=== PATIENT | male | born 1990 | race Caucasian/White ===

== ENCOUNTER 2020-04-01 08:00 | Emergency (ER) | payer OTHER, SELFPAY ==
[2020-04-01 08:09] VITALS: BP 142/76; PULSE 85; RESP 20; TEMP 37.3; O2SAT 100
--- NOTE | 2020-04-01 08:20 | ED.SKABFB ---
HPI - Skin/Abscess/Foreign Bdy General Chief complaint: Skin/Abscess/Foreign Body Stated complaint: bite on left forearm Time Seen by Provider: 04/01/20 08:16 Source: patient and RN notes reviewed Mode of arrival: ambulatory Limitations: no limitations History of Present Illness HPI narrative: Patient presents today complaining of an insect bite to his left forearm. Bite was sustained 2 days ago. Redness has spread since onset of symptoms. Patient is unsure what bit him. He does report some itching, but denies pain. He has been using oral Benadryl and topical Benadryl without much relief. No recent antibiotic use. MD complaint: insect bite/sting Related Data Allergies Allergy/AdvReac Type Severity Reaction Status Date / Time No Known Allergies Allergy Unverified 04/01/20 08:12 Review of Systems Review of Systems: Narrative: CONSTITUTIONAL: Denies body aches, fever, chills, or sweats. EYES: Denies visual changes, redness, or discharge. ENT: Denies rhinorrhea, congestion, sore throat, or otalgia. CARDIOVASCULAR: Denies chest pain, palpitations, or edema. RESPIRATORY: Denies cough or dyspnea. GASTROINTESTINAL: Denies abdominal pain, nausea, vomiting, or diarrhea. GENITOURINARY: Denies dysuria or hematuria. SKIN: +Insect bite to left forearm MUSCULOSKELETAL: Denies back pain, joint pain, or myalgia. NEUROLOGIC: Denies headache, numbness, tingling, or weakness. PSYCH: Denies depression or anxiety. PMFSH Comments At time of signature, I have reviewed and agree with nursing past medical, surgical, social and family history unless otherwise noted. Please see nursing chart for further information. There is no relevant family history pertinent to the presenting complaint Exam Narrative: Exam Narrative: GENERAL: Well-appearing, well-nourished, and in no acute distress. HEAD: Normocephalic, atraumatic. EYES: EOMI. No redness or drainage. Conjunctivae normal. ENT: Mucous membranes pink and moist. NECK: Normal AROM. CHEST: No respiratory distress. EXTREMITIES: Normal range of motion. SKIN: Warm, dry. Capillary refill normal. Normal skin turgor.Insect bite with small pustule to the left proximal forearm with 2 cm round area of induration and darker erythema. Outside of this, there is a 4 cm round area of erythema without induration.No fluctuance.Nontender NEURO: No focal deficits. Alert and oriented x3. Gait steady. PSYCH: Normal affect. No signs of depression or anxiety. Course Vital Signs Vital signs: Vital Signs Temperature 99.1 F 04/01/20 08:09 Pulse Rate 85 04/01/20 08:09 Respiratory Rate 20 04/01/20 08:09 Blood Pressure 142/76 H 04/01/20 08:09 Pulse Oximetry 100 04/01/20 08:09 Temperature 99.1 F 04/01/20 08:09 Pulse Rate 85 04/01/20 08:09 Respiratory Rate 20 04/01/20 08:09 Blood Pressure 142/76 H 04/01/20 08:09 Pulse Oximetry 100 04/01/20 08:09 Reviewed. Pt has been instructed to follow up with his PCP regarding his elevated blood pressure today. MDM - Skin/Abscess/Foreign Bdy Differential Diagnosis Differential diagnosis: Likely abscess of skin or subcutaneous tissue, insect bites, impetigo and contact dermatitis Critical Care Time Critical Care Time Critical Care Time: No Discharge Plan Discharge Clinical Impression: Insect bites Qualifiers: Encounter type: initial encounter Site of insect bite: forearm Laterality: left Qualified Code(s): S50.862A - Insect bite (nonvenomous) of left forearm, initial encounter Cellulitis Qualifiers: Site of cellulitis: extremity Site of cellulitis of extremity: upper extremity Laterality: left Qualified Code(s): L03.114 - Cellulitis of left upper limb Patient Disposition: Home, Self-Care Condition: Stable Instructions: Antibiotic Form, Cellulitis (DC), Insect Bite or Sting (ED) Additional Instructions: Please take the Bactrim and prednisone as directed.Please continue a daily antihistamine such as Zyrtec, Claritin,
== END 2020-04-01 08:26 | disposition home or self-care (01) ==
PROVIDERS: Emergency Provider Nurse Practitioner
DX: S50.862A Insect bite (nonvenomous) of left forearm, initial encounter (principal); L03.114 Cellulitis of left upper limb; W57.XXXA Bitten or stung by nonvenomous insect and other nonvenomous arthropods, initial encounter
CPT/HCPCS: 99213; G0463

== ENCOUNTER 2021-07-06 11:56 | Emergency (ER) | payer BC, SELFPAY ==
--- NOTE | ~2021-07-06 | US_ITS ---
EXAMINATION: US abdomen limited DATE: 07/06/2021 13:29 INDICATION: Right upper quadrant pain TECHNIQUE: Multiple grayscale and Doppler ultrasound images of the abdomen were obtained. COMPARISON: None available FINDINGS: Bowel gas obscures visualization of the pancreas. The liver is normal with normal echogenic ity and echotexture. No surface nodularity. Normal hepatopetal flow in the main portal vein. The gall bladder is distended and contains stones. No definite gallbladder wall thickening or pericholecystic fluid are identified. The normal common bile duct measures 5 mm. There was no sonographic Forrest sign . IMPRESSION: 1. Cholelithiasis and gallbladder wall distention without gallbladder wall thickening or pericholecys tic fluid. Findings are equivocal for acute cholecystitis. Consider nuclear hepatobiliary scan if the re is high clinical concern for cholecystitis. Reviewed, dictated and finalized at location A. IMPRESSION: 1. Cholelithiasis and gallbladder wall distention without gallbladder wall thic kening or pericholecystic fluid. Findings are equivocal for acute cholecystitis . Consider nuclear hepatobiliary scan if there is high clinical concern for cho lecystitis.
[2021-07-06 12:05] VITALS: BP 174/103; PULSE 98; RESP 18; TEMP 36.4; O2SAT 100
--- NOTE | 2021-07-06 12:08 | ECG_ITS ---
Measurements Intervals [place] Rate: 80 P: 52 DC: 128 QRS: 65 QRSD: 110 T: -18 QT: 355 QTc: 410 Interpretive Statements SINUS RHYTHM WITH SINUS ARRHYTHMIA ST-T WAVE ABNORMALITY IN INFERIOR LEADS- CONSIDER ISCHEMIA ABNORMAL ECG Electronically Signed On 07-06-2021 12:21:57 CDT by Can Raymond D.O.
[2021-07-06] MEDS: MORPHINE SULFATE (*CRX) 4 MG/ML INJ IV PUSH (12:19)
[2021-07-06] MEDS: LACTATED RINGERS 1,000 ML 999 ML IV CONT (12:19)
[2021-07-06 12:28] LABS: Basophils Absolute Auto 0.07 K/mm3 (0.00-0.10); Basophils Percent Auto 0.6 % (0.0-1.0); Eosinophils Absolute Auto 0.32 K/mm3 (0.02-0.50); Eosinophils Percent Auto 2.8 % (1.0-6.0); Hematocrit 44.7 % (40.0-54.0); Hemoglobin 15.1 g/dL (14.0-18.0); Immature Granulocyte Absolute 0.05 K/mm3 (0.00-0.00); Immature Granulocyte Percent A 0.4 % (0.0-0.0); Lymphocytes Absolute Auto 2.31 K/mm3 (1.10-4.50); Lymphocytes Percent Auto 20.1 % (18.0-42.0); Mean Corpuscular HGB Conc 33.8 g/dL (32.0-36.0); Mean Corpuscular Hemoglobin 30.9 pg (27.0-31.0); Mean Corpuscular Volume 91.4 fL (78.0-102.0); Mean Platelet Volume 9.1 fl (8.7-11.0); Monocytes Absolute Auto 0.73 K/mm3 (0.10-0.90); Monocytes Percent Auto 6.3 % (2.0-11.0); Neutrophils Percent Auto 69.8 % (50.0-70.0); Platelet Count Result 212 K/mm3 (150-420); Red Blood Count 4.89 M/mm3 (4.70-6.10); Red Cell Distribution Width 12.5 % (11.6-14.4); White Blood Count 11.5 K/mm3 (4.8-10.8)
[2021-07-06 12:37] LABS: Prothrombin Time 10.9 Seconds (9.50-12.10)
[2021-07-06 12:41] LABS: Alanine Aminotransferase 59 U/L (16-63); Albumin Level 4.2 g/dL (3.4-5.0); Alkaline Phosphatase 52 U/L (46-116); Anion Gap 7 mmol/L (8-16); Aspartate Amino Transferase 17 U/L (15-37); Bilirubin,Total 0.3 mg/dL (0.00-1.00); Blood Urea Nitrogen 14 mg/dL (7-18); Calcium 9.1 mg/dL (8.5-10.1); Carbon Dioxide 30 mmol/L (21-32); Chloride 104 mmol/L (98-108); Estimated CRCL calculation 135 ml/min; Estimated Glomerular Filt Rate > 60; Glucose 129 mg/dL (70-99); Lipase 75 U/L (73-393); Osmolality Calculated 294 mOsm/kg (285-295); Potassium 4.4 mmol/L (3.5-5.1); Sodium 141 mmol/L (136-145); Total Protein 7.3 g/dL (6.4-8.2)
[2021-07-06 12:42] LABS: Troponin I < 4.0 ng/L (0.00-60.4)
[2021-07-06 12:43] LABS: CRP < 0.2 mg/dL (0.0-0.9)
[2021-07-06 12:44] LABS: Lactic Acid Reflex 0.9 mmol/L (0.4-2.0)
[2021-07-06] MEDS: MORPHINE SULFATE (*CRX) 2 MG/ML INJ IV PUSH (13:01)
[2021-07-06 13:03] LABS: Add Urine Microscopic? NO; Appearance Urine Clear (Clear); Bilirubin Urine Negative (Negative); Blood Urine Negative (Negative); Color Urine Light Yellow (Yellow); Glucose Urine UA Negative (Negative); Ketones Urine Negative (Negative); Leukocyte Esterase Ur Negative (Negative); Nitrate Urine Negative (Negative); Protein Urine Negative (Negative); Specific Grav Ur 1.025 (1.010-1.020); Urobilinogen Urine 0.2 mg/dL (0.2-1.0)
--- NOTE | 2021-07-06 13:03 | ED.GENADULT ---
HPI - General Adult General Chief complaint: Abdominal Pain Stated complaint: CHEST PAIN Source: patient Mode of arrival: ambulatory History of Present Illness HPI narrative: Solomon is a 31M with a PMH of allergies that presented to the ED with abdominal pain. A few hours ago he ate a greasy meal at [employer] and shortly after had pain in his RUQ and epigastric region. It does not radiate. He admits nausea but no vomiting or diarrhea. He denies CP, SOB and lightheadedness. Related Data Allergies Allergy/AdvReac Type Severity Reaction Status Date / Time No Known Allergies Allergy Unverified 04/01/20 08:12 Review of Systems Constitutional: Constitutional: Reports no additional constitutional complaints, Denies chills and Denies fever(s) Eyes: Eyes: Reports no additional eye complaints ENT: Reports system reviewed and no additional complaints, except as documented Cardiovascular: Cardiovascular: Reports no additional cardiovascular complaints Respiratory: Respiratory: Reports no additional respiratory complaints Gastrointestinal: Gastrointestinal: Reports as per HPI Genitourinary: Genitourinary: Reports no additional male genitourinary complaints Musculoskeletal: Musculoskeletal: Reports no additional musculoskeletal complaints Integumentary/Breasts: Skin/Breast: Reports system reviewed and no additional complaints, except as docu Neurologic: Reports system reviewed and no additional complaints, except as documented Psychiatric: Psychiatric: Reports no additional psychiatric complaints Endocrine: Endocrine: Reports no additional endocrine complaints Hematologic/Lymphatic: Hematologic/Lymphatic: Reports no additional hematologic/lymphatic complaints Allergic/Immunologic: Allergic/Immunologic: Reports no additional allergic/immunologic complaints Exam Const: General: no acute distress and alert Orientation/consciousness: patient oriented x3 Limitations: No altered mental status HENMT: Head: normal to inspection Other: atraumatic Eyes: Conjunctivae: conjunctivae normal Pupils: Equal, round and reactive pupils present Neck: Neck: normal visual inspection Chest: Chest palpation & inspection: normal inspection of the chest Resp: Effort & Inspection: normal respiratory effort Auscultation: clear to auscultation bilaterally Cardio: Rate: regular rate Rhythm: regular rhythm Heart sounds: no murmurs GI: Inspection: non-distended GI Palp: Yes Soft to palpation, No Guarding due to palpation present (GI) and No Rigid due to palpation Other: TTP in the epigastric region and RUQ. +Forrest Sign. Back/Spine/Pelvis: Back: no CVA tenderness Skin: General skin exam: normal color Rashes: no rashes Neuro: General: patient oriented x3 and moves all extremities Extrem: General: normal to inspection Psych: Mental Status: mental status grossly normal Course Course Emergency Course: Ordered labs, EKG and morphine and fluids. EKG showed NSR with a rate of 80, normal axis but flipped T waves in aVF and III. Labs showed slight leukocytosis but were otherwise unremarkable. Pain was improved with morphine but he was still in discomfort so an additional 2mg was given. A RUQ US was ordered. EXAMINATION: US abdomen limited DATE: 07/06/2021 13:29 INDICATION: Right upper quadrant pain TECHNIQUE: Multiple grayscale and Doppler ultrasound images of the abdomen were obtained. COMPARISON: None available FINDINGS: Bowel gas obscures visualization of the pancreas. The liver is normal with normal echogenicity and echotexture. No surface nodularity. Normal hepatopetal flow in the main portal vein. The gallbladder is distended and contains stones. No definite gallbladder wall thickening or pericholecystic fluid are identified. The normal common bile duct measures 5 mm. There was no sonographic Forrest sign. IMPRESSION: 1. Cholelithiasis and gallbladder wall distention without gallbladder wall thickening or pericholecystic fluid.
[2021-07-06 14:23] VITALS: BP 158/86; PULSE 99; RESP 18; O2SAT 96
[2021-07-06] MEDS: metroNIDAZOLE 500 MG/ISO 100ML 500 MG/100 ML BAG 100 MG IVPB (14:53)
== END 2021-07-06 15:55 | disposition home or self-care (01) ==
PROVIDERS: Emergency Provider Family Medicine; PCP Internal Medicine
DX: K80.10 Calculus of gallbladder with chronic cholecystitis without obstruction (principal)
CPT/HCPCS: 36415; 76705; 80053; 81003; 83605; 83690; 84484; 85025; 85610; 86140; 93005; 96361; 96365; 96367; 96375; 96376; 99283; 99284; J0696; J2270; J7120

== ENCOUNTER 2021-07-20 10:12 | Outpatient (CLI) | payer BC, SELFPAY ==
[2021-07-20 10:44] LABS: Amylase 53 U/L (30-110)
== END 2021-07-20 10:13 | disposition home or self-care (01) ==
PROVIDERS: PCP Internal Medicine; Visit Provider Surgery
DX: K80.10 Calculus of gallbladder with chronic cholecystitis without obstruction (principal); Z01.818 Encounter for other preprocedural examination
CPT/HCPCS: 36415; 82150; 86850; 86900; 86901

== ENCOUNTER 2021-07-23 01:32 | Day surgery (SDC) | payer BC, SELFPAY ==
[2021-07-16 11:33] VITALS: BMI 34.7
[2021-07-23] VITALS (8 sets, daily range): BP systolic 102–134; BP diastolic 60–79; PULSE 54–86; RESP 11–20; TEMP 36.3–36.8; O2SAT 97–100; BMI 34.2
--- NOTE | 2021-07-23 10:34 | P.PNAN_ITS ---
Anes - Initial Pre Proc Eval Procedure: Operation Date: 07/23/21 12:00 Proposed Procedures p Laparoscopic Cholecystectomy - Fallon Dorsey MD Date/Time: 07/23/21 10:34 Surgeon: Fallon Dorsey MD Pre Op Diagnosis: cholecystitis with cholelithiasis Patient Data Age: 31 Gender: M Height: 1.83 m Weight: 116.12 kg Allergies Allergy/AdvReac Type Severity Reaction Status Date / Time No Known Allergies Allergy Verified 07/16/21 11:31 Home Medications Medication Instructions Recorded Confirmed Type No Home Medications 07/16/21 07/16/21 History Patient hx anesthesia problems: none Family hx anesthesia problems: none Results Review: All pre-operative results and documents have been reviewed as part of the pre-operative evaluation. [facility] Past Medical History Medical History History of asthma Surgical History Surgical History History of epidermal inclusion cyst excision Hx of hand surgery finger reconstruction Hx of tonsillectomy Family History Family History Father Kidney stones Social History Social History Smoking packs per day: 0.75 Smoking cigarettes per day: 15.0 Years smoked: 15 Smoking pack-years: 11.25 Smoking status: Current every day smoker Tobacco type: cigarettes Alcohol intake: current Drinks per week: 20 Alcohol use details: VODKA Substance use: never Living arrangements: with family 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 Informed Consent: The patient's anesthetic plan and its attendant risks and benefits were discussed with the patient/family/POA. Questions were solicited and answers provided to the satisfaction of the patient/family/POA.
[2021-07-23] MEDS: LACTATED RINGERS 1,000 ML 30 ML IV CONT ×2 (10:41→12:33)
[2021-07-23] MEDS: KETOROLAC 15 MG/ML VIAL (*BKC) IV PUSH (10:57)
[2021-07-23] MEDS: ACETAMINOPHEN 500 MG TABLET 1000 MG PO (10:57)
--- NOTE | 2021-07-23 11:06 | WPDHPUPDATE1 ---
History and Physical Update Update Date/Time: 07/23/21 11:06 History and Physical has been reviewed, including an updated exam of the patient. There are NO changes in the patient's condition. Risks, benefits, and alternatives have been discussed and questions answered. Patient agrees to proceed with procedure.
[2021-07-23] MEDS: ceFAZolin 2 GM/D5W 50 ML 2 GM/50 ML BAG IVPB (11:31)
[2021-07-23] MEDS: BUPIVACAINE HCL 0.5% PF 30 ML VIAL INFILTRATE (11:58)
--- NOTE | 2021-07-23 12:33 | W.PM.PROC2 ---
Procedure Note - Detailed Date of Procedure 07/23/21 Pre-op Diagnosis cholecystitis with cholelithiasis Post-op Diagnosis same Procedure Performed laparoscopic cholecystectomy Surgeon Fallon Dorsey MD Anesthesia general Indications 31 y/o M c cholecystitis, cholelithiasis Findings chronic cholecystitis, cholelithiasis Description of Procedure The patient was taken to the operating room placed in the supine position. After adequate induction of general anesthesia, the patient was prepped and draped in normal sterile fashion. A time-out was then performed to verify the patient's identity as well as the procedure being performed. I then made a 5 mm incision in the infraumbilical region. Through this, a Veress needle was placed into the peritoneal cavity and CO2 gas was then insufflated. After adequate pneumoperitoneum was achieved, the Veress needle was removed and a 5 mm optiview trocar was placed through this incision under direct visualization. I then placed the laparoscope through this trocar site and under direct visualization placed a further 12 mm subxiphoid port as well as 2 additional 5 mm ports in the right upper abdomen. The gallbladder was then identified and was noted to be moderately inflamed, distended, and full of gallstones. I was able to place a grasper at the dome of the gallbladder and this was retracted anterior and cephalad up over the liver. A 2nd retractor was then placed at the infundibulum and retracted laterally, this allowed visualization of the triangle of Calot. I then was able to visualize the cystic duct in its entirety from its proximal insertion into the gallbladder, to its distal junction with the common hepatic/common bile duct junction. At this point, I carefully skeletonized the proximal cystic duct with the [place] dissector. I then clipped and transected the proximal cystic duct. Next I visualized the cystic artery. Again the artery was skeletonized, clipped, and transected. I then used the Bovie cautery to take down the peritoneal attachments of the gallbladder off the liver bed. This was somewhat difficult given the amount of inflammation in the posterior space. Once the gallbladder specimen was completely detached, an endo-pouch was placed through the 12 mm port site. I then placed the gallbladder specimen into the Endo pouch and removed the endo-pouch from the 12 mm port site. The specimen will now be sent to pathology for further review. I then copiously irrigated the right upper quadrant. Hemostasis was noted in the liver bed, the clips were noted to be in good position on both the cystic duct stump and the cystic artery stump. No other pathology was noted in the right upper quadrant. I then moved the laparoscope to the subxiphoid port. No iatrogenic injury or other pathology was noted in the lower abdomen. I then closed the 12 mm trocar site under direct visualization using the Isma cone and 0 Vicryl suture. At this point, the abdomen was desufflated and all ports removed. All port sites were then closed with 4.O Monocryl subcuticular sutures. Dermabond was placed on each incision. The patient tolerated the procedure well, was extubated in the operating room postoperative and will be transferred to the recovery room in stable condition Estimated Blood Loss 5 Drains No Packing No Pathology yes Complications No immediate complications Condition stable Disposition PACU
== END 2021-07-23 14:10 | disposition home or self-care (01) ==
PROVIDERS: PCP Internal Medicine; Visit Provider Surgery
PROC: 0FT44ZZ Resection of Gallbladder, Percutaneous Endoscopic Approach (ICD-10-PCS; CPT 47562; principal; 2021-07-23 12:00)
DX: K80.10 Calculus of gallbladder with chronic cholecystitis without obstruction (principal); J45.909 Unspecified asthma, uncomplicated; Z87.891 Personal history of nicotine dependence; E66.9 Obesity, unspecified; Z68.34 Body mass index [BMI] 34.0-34.9, adult
CPT/HCPCS: 47562; 88304; A9270; J0690; J1100; J1170; J1885; J2250; J2405; J2704; J2710; J3010; J7030; J7120

== ENCOUNTER 2024-12-22 10:09 | Outpatient (CLI) | payer BC, SELFPAY ==
--- OUTSIDE RECORDS SUMMARY | 2024-12-22 11:21 | XMS_ITS | Clinical Summary ---
Author Organization [facility] Address [address] [place] [address] Care Team Providers Care Primary Substance Abuse Counselor Name Role Phone Unavailable Primary Care Provider Unavailabl e Social History Tobacco Use Types Packs/Day Years Used Date Smoking Tobacco: Never Assessed Sex and Gender Information Value Date Recorded Sex Assigned at Not on file Legal Sex Male 10:44 PM CDT Gender Identity Not on file Sexual Orientation Not on file Plan of Treatment Health Maintenance Due Date Last Done Comments Annual Physical 1992 Hepatitis C 2007 DTaP, Tdap and Td Vaccines ( 1 - Tdap) 2008 Hepatitis B Vaccines (1 of 3 - 19+ 3-dose series) 2008 COVID-19 Vaccine (2023-2 5 season) 2024 Influenza Adult (#1) 2024 HPV Vaccines Aged Out No longer eligi ble based on patient's age to complete this topic Meningococcal B Vaccine Aged Out No l onger eligible based on patient's age to complete this topic Meningococcal Vaccine Aged Out No eloise ryan eligible based on patient's age to complete this topic Pneumococcal Vaccine: Pediat rics (0 to 5 Years) and At-Risk Patients (6 to 64 Years) Aged Out No longer eligible b ased on patient's age to complete this topic RSV Immunizations Under 20 Months Aged Out No longer eligible based on patient's age to complete this topic
--- OUTSIDE RECORDS SUMMARY | 2024-12-22 11:21 | XMS_ITS | Clinical Summary ---
Author Organization [facility] Address [address] [place] [address] Phone Care Team Providers Care Pyroglazer Name Role Phone Provider, Unknown Primary Care Provider Unavaila ble Allergies No known active allergies Medications No known medications Active Problems No known active problems Immunizations Immunization Administration Dates Next Due MMR Vaccine 05/01/2007 Meningococcal Vaccine 05/01/2007 TD VACCINE 05/05/2003 Social History Tobacco Use Types Packs/Day Years Used Date Smoking Tobacco: Never Assessed Sex and Gender Information Value Date Recorded Sex Assigned at Not on file Legal Sex Male 4:56 PM CDT Gender Identity Not on file Sexual Orientation Not on file Plan of Treatment Health Maintenance Due Date Last Done Comments Hepatitis C Virus (HCV) Screening 1989 TdaP Immunization 1989 Hepatitis B Immunization (1 of 3 - 19+ 3-dose series) 2008 Influenza Immunization (#1) 2024 SARS-COV-2 Immunization (3 - 2023-25 season) 2024 07/05/2021, 06/14/2021 Respiratory Syncytial Virus (RSV) Immunization (Adult) (1 - 1-dose 75+ series) 2064 DTaP/Tdap/Td Immunization Discontinued 05/05/2003 Meningococcal Immunization (ACWY) Completed 05/01/2007 Pneumococcal Immunization Combined Aged Out No longer eligible based on patient's age to complete this topic Rotavirus Immunization Aged Out No lo nger eligible based on patient's age to complete this topic Care Teams Pyroglazer Relationship Specialty Start Date End Date Provider, Unknown UNKNOWN PCP - General 07/04/20
[2024-12-22 13:50] LABS: Liquefaction Semen Complete in 30 min. (<30 minutes); Semen Color Opaque (Grey-opaque); Semen Viscosity Not Increased (Not Increa.); Volume Semen 3 mL (1.5-5.0)
[2024-12-22 13:51] LABS: Semen Immotility 30 %; Semen Morphology Result to Follow; Semen Non-Progressive Motility 10 %; Semen Progressive Motility 60 % (>32); Semen Total Motility 70 (>40% (PM+NP)); Sperm Count 59.7 Mil/mL (60-150 million/mL)
[2024-12-28 21:58] LABS: Fructose, Semen 172 mg/dL (150-600)
== END 2024-12-22 10:10 | disposition home or self-care (01) ==
PROVIDERS: PCP Advanced Practice Midwife; Visit Provider Advanced Practice Midwife
DX: Z30.09 Encounter for other general counseling and advice on contraception (principal)
CPT/HCPCS: 82757; 88160; 89320

== ENCOUNTER 2025-04-25 10:16 | Outpatient (CLI) | payer BC, SELFPAY ==
--- OUTSIDE RECORDS SUMMARY | 2025-04-25 10:29 | XMS_ITS | Clinical Summary ---
Author Organization [facility] Address [facility] [address] [place] [address] Care Team Providers Care Contact Center Professional Name Role Phone Unavailable Primary Care Provider [...] 2008 COVID-19 Vaccine (2023-2 5 season) 2024 HPV Vaccines Aged Out No longer eligi ble based on patient's age to complete this topic Meningococcal B Vaccine Aged Out No l onger eligible based on patient's age to complete this topic Meningococcal Vaccine Aged Out No eloise ryan eligible based on patient's age to complete this topic Pneumococcal Vaccine: Pediat rics (0 to 5 Years) and At-Risk Patients (6 to 49 Years) Aged Out No longer eligible b ased on patient's age to complete this topic RSV Immunizations Under 20 Months Aged Out No longer eligible based on patient's age to complete this topic
--- OUTSIDE RECORDS SUMMARY | 2025-04-25 10:29 | XMS_ITS | Clinical Summary ---
Author Organization [facility] Address [address] [place] [address] Phone Care Team Providers Care Theatre Professor Name Role Phone Provider, Unknown Primary Care [...] age to complete this topic Care Teams Theatre Professor Relationship Specialty Start Date End Date Provider, Unknown UNKNOWN PCP - General 07/04/20
[2025-04-25 11:30] LABS: Liquefaction Semen Complete in 30 min. (<30 minutes); Semen Immotility 30 %; Semen Non-Progressive Motility 20 %; Semen Progressive Motility 50 % (>32); Semen Total Motility 70 (>40% (PM+NP)); Volume Semen 3.0 mL (1.5-5.0)
[2025-04-25 11:32] LABS: Semen Morphology Result to Follow; Sperm Count 37.1 Mil/mL (60-150 million/mL)
[2025-05-04 19:18] LABS: Fructose, Semen 181 mg/dL (150-600)
== END 2025-04-25 10:17 | disposition home or self-care (01) ==
LOC: CHSLAB 10:19
PROVIDERS: Visit Provider Urology
DX: Z31.41 Encounter for fertility testing (principal)
CPT/HCPCS: 82757; 88160; 89320

== ENCOUNTER 2025-08-11 09:58 | Outpatient (CLI) | payer OTHER, SELFPAY ==
--- NOTE | 2025-08-11 | SEMFERTCOM_PTH ---
PATIENT: Lan Rodgers LOC: [facility] U#:[id number] AGE/SX: 35/M ROOM: RE08/11/[address]: Grace Paula MD : 1990 BED: DIS: 08/11/2025 SPEC #: [id number] RECD: 08/11/25 09:52 STATUS: ANGE RERuy #: [id number] KIARA: 08/11/25 00:[address]: Grace Paula DEPT: [facility] Semen RECD BY: Bridget Timmons MLT, ([facility]) Procedures: Semen Fert PAP Stain
--- OUTSIDE RECORDS SUMMARY | 2025-08-11 11:01 | XMS_ITS | Clinical Summary ---
Author Organization [facility] Address [facility] [address] [place] [address] Care Team Providers Care Tugboat Captain Name Role Phone Unavailable Primary Care Provider [...] of 3 - 19+ 3-dose series) 2008 HPV Vaccines (1 - 3-dose SCD M series) 2016 COVID-19 Vaccine ( - 2024-2 6 season) 2025 Influenza Adult (#1) 2025 Hepatitis A Vaccines Aged Out No long er eligible based on patient's age to complete [...]
--- OUTSIDE RECORDS SUMMARY | 2025-08-11 11:01 | XMS_ITS | Clinical Summary ---
Author Organization [facility] Address [address] [place] [address] Phone Care Team Providers Care Supervisor Steffen House Name Role Phone Provider, Unknown Primary Care [...] of 3 - 19+ 3-dose series) 2008 Human Papillomavirus (HPV) Immunization (1 - 3-dose SCDM series) 2016 Influenza Immunization (#1) 2025 SARS-COV-2 Immunization (2024- season) 2025 07/05/2021, 06/14/2021 Respiratory Syncytial Virus (RSV) Immunization (Adult) (1 - 1-dose 75+ series) 2064 DTaP/Tdap/Td Immunization Discontinued 05/05/2003 Meningococcal Immunization (ACWY) Completed 05/01/2007 Pneumococcal Immunization Combined Aged Out No longer eligible based on patient's age to complete this topic Rotavirus Immunization Aged Out No lo nger eligible based on patient's age to complete this topic Care Teams Supervisor Steffen House Relationship Specialty Start Date End Date Provider, Unknown UNKNOWN PCP - General 07/04/20
[2025-08-11 11:06] LABS: Hematocrit 52.2 % (40.0-54.0); Hemoglobin 17.2 g/dL (14.0-18.0)
[2025-08-11 12:00] LABS: Liquefaction Semen Complete in 30 min. (<30 minutes); Volume Semen 3.5 mL (1.5-5.0)
[2025-08-11 12:01] LABS: Semen Immotility 50 %; Semen Morphology Result to Follow; Semen Non-Progressive Motility 20 %; Semen Progressive Motility 30 % (>32); Semen Total Motility 50 (>40% (PM+NP)); Sperm Count 66.2 Mil/mL (60-150 million/mL)
[2025-08-12 07:09] LABS: LH 10.6 mIU/mL (1.7-8.6)
[2025-08-12 09:08] LABS: FSH 13.7 mIU/mL (1.5-12.4)
== END 2025-08-11 09:59 | disposition home or self-care (01) ==
PROVIDERS: PCP Urology; Visit Provider Urology
DX: Z31.41 Encounter for fertility testing (principal)
CPT/HCPCS: 36415; 83001; 83002; 85014; 85018; 88160; 89320